=== PATIENT | female | born 1970 | race Caucasian/White ===

== ENCOUNTER → 2018-08-13 08:49 | Outpatient (CLI) | payer MEDICAID, SELFPAY ==
--- NOTE | 2018-08-13 08:55 | US_ITS ---
STUDY: ULTRASOUND BREAST - LEFT REASON FOR EXAM: Female, 48 years old. LT BREAST LUMP - RED/ITCHING mammo today also TECHNIQUE: Axial and longitudinal images of the LEFT breast were performed with a high resolution ultrasound transducer. COMPARISON: None. FINDINGS: LEFT Breast: There is a skin lesion in the lower outer quadrant. The lesion measures 0.6 x 0.1 x 0.5 cm in size. Clock notation: 4 o'clock position. Distance from nipple: 6 cm. Posterior Enhancement: Yes. Posterior Shadowing: None. Margins: Indistinct but smooth. Echogenicity: Isoechoic. Compression effect on Shape: No change. US/Breast Limited Unilateral IMPRESSION: Nonspecific skin lesion may represent a scar for which short-term ultrasound follow-up can be helpful to ensure stability or resolution. ASSESSMENT CATEGORY: BIRADS Category 3: Probably Benign - Short-Interval Follow-up Suggested. A letter regarding these results will be sent to the patient by the facility within 30 days. Electronically Signed: Chacha Silva, at 16:28 EDT Tel , Service support ,
--- NOTE | 2018-08-13 08:55 | BI_ITS ---
MAMMOGRAPHY - BILATERAL DIAGNOSTIC REASON FOR EXAM: Female, 48 years old. Superficial left breast lump. Pruritus. PERTINENT HISTORY: Non-contributory. Multiple bilateral breast reduction surgery. TECHNIQUE: Digital bilateral breast maritza (3D mammographic acquisition) in the CC and MLO projections. 2-D mediolateral oblique (MLO) and craniocaudad (CC) views of both breasts were obtained. CAD: Full Field Digital Mammography with Computer Added Detection was performed. COMPARISON: Comparison is made with prior outside examination dated December 29, 2015. FINDINGS: Breast Composition: There are scattered areas of fibroglandular density. There are no dominant masses or suspicious calcifications. No other significant abnormalities are identified. There has been no significant change since the prior study. BI/DIAG MAMM W/CAD, BILAT IMPRESSION: Stable bilateral diagnostic mammogram. With the patient's history of a palpable abnormality in the left retroareolar region, correlation with ultrasound is recommended. ASSESSMENT CATEGORY: BIRADS Category 0: Incomplete. Need additional imaging evaluation. A letter regarding these results will be sent to the patient by the facility within 30 days. Approximately 10% of breast cancers are not detected by mammography. A normal mammogram should not delay biopsy of a clinically suspicious abnormality. Electronically Signed: Praneeth Lakhani, at 8:43 EDT , Service support ,
== END ==
PROVIDERS: Family Provider Family Medicine; PCP Family Medicine; Referring Provider Family Medicine; Visit Provider Family Medicine
DX: N63.20 Unspecified lump in the left breast, unspecified quadrant (principal); L29.9 Pruritus, unspecified
CPT/HCPCS: 76642; 77062; 77066; G0279